=== PATIENT | female | born 1985 | race Caucasian/White ===

== ENCOUNTER 2020-07-16 17:42 | Emergency (ER) | payer OTHER, SELFPAY ==
[2020-07-16] MEDS ORDERED: Acetaminophen 500 MG TAB ONE (18:10)
[2020-07-16] MEDS ORDERED: Ketorolac Tromethamine 30 MG/ML VIAL ONE (18:10)
== END 2020-07-16 18:36 | disposition home or self-care (01) ==
LOC: ERS 17:42
DX: S80.01XA Contusion of right knee, initial encounter (principal); I10 Essential (primary) hypertension; Z79.899 Other long term (current) drug therapy; W22.8XXA Striking against or struck by other objects, initial encounter
CPT/HCPCS: 96372; J1885

== ENCOUNTER 2020-08-28 17:04 | Emergency (ER) | payer OTHER, SELFPAY ==
[2020-08-28 18:05] LABS: #Eosinphils 0.1 thou/uL (0.0-0.7); #Lymphocytes 2.9 thou/uL (1.20-3.40); #Monocytes 0.5 thou/uL (0.11-0.59); %Basophils 0.4 % (0.0-1.0); %Eosinophils 0.7 % (0.0-10.0); %Lymphocytes 30.5 % (21.0-51.0); %Monocytes 5.4 % (0.0-10.0); Mean Corpuscular HGB CONC 35.1 g/dL (32.0-36.0); Mean Corpuscular Hemoglobin 31.4 pg (27.0-31.0); Mean Corpuscular Volume 89.5 fL (78.0-98.0); Mean Platelet Volume 7.7 fL (7.4-10.4); Platelet Count 234 thou/uL (130-400); RBC Distribution Width 11.3 % (11.5-14.5); Red Blood Cell (RBC) Count 4.78 mill/uL (4.20-5.40); White Blood Cell (WBC) Count 9.5 thou/uL (4.8-10.8)
[2020-08-28 18:29] LABS: CKMB 1.2 ng/mL (0-6.6)
[2020-08-28 18:31] LABS: ALT (SGPT) 13 U/L (8-55); AST (SGOT) 17 U/L (5-34); Albumin 4.2 g/dL (3.5-5.0); Alkaline Phosphatase 45 U/L (40-110); Anion Gap 15 mmol/L (10-20); BUN (Urea Nitrogen) 16 mg/dL (7.0-18.7); Bilirubin, Total 0.3 mg/dL (0.2-1.2); Calc. Creatinine Clearance 0 mL/min (70-130); Calcium 9.8 mg/dL (7.8-10.44); Carbon Dioxide 24 mmol/L (22-29); Chloride 103 mmol/L (98-107); Globulin 2.6 g/dL (2.4-3.5); Glucose 96 mg/dL (70-105); Lipase 29 U/L (8-78); Potassium 3.7 mmol/L (3.5-5.1); Protein, Total 6.8 g/dL (6.0-8.3); Sodium 138 mmol/L (136-145)
[2020-08-28] MEDS ORDERED: Morphine 4 MG/ML VIAL ONE (18:48)
[2020-08-28] MEDS ORDERED: Diazepam 5 MG TAB ONE (18:48)
== END 2020-08-28 19:45 | disposition home or self-care (01) ==
LOC: ERS 17:04
DX: S29.012A Strain of muscle and tendon of back wall of thorax, initial encounter (principal); I10 Essential (primary) hypertension; Z79.899 Other long term (current) drug therapy; X58.XXXA Exposure to other specified factors, initial encounter
CPT/HCPCS: 36415; 71045; 80053; 82553; 83690; 84484; 85025; 93005; 96372; J2270

== ENCOUNTER 2023-03-04 09:07 | Outpatient (CLI) | payer OTHER | END 2023-03-04 09:08 | disposition home or self-care (01) | LOC: ULT 09:07 | PROVIDERS: ATTEND Nurse Practitioner Family | DX: R10.9 Unspecified abdominal pain (principal); K59.09 Other constipation; K80.20 Calculus of gallbladder without cholecystitis without obstruction | CPT/HCPCS: 76700 ==

== ENCOUNTER 2023-06-05 18:33 | Emergency (ER) | payer OTHER ==
[2023-06-05] MEDS ORDERED: Acetaminophen 500 MG TAB ONE (18:44)
[2023-06-05] MEDS ORDERED: Ibuprofen 200 MG TAB ONE ×2 (18:45→18:46)
[2023-06-05] MEDS ORDERED: Boostrix 0.5 ML (Tdap) VIAL (>/=7 yrs of age) ONE (18:48)
== END 2023-06-05 20:23 | disposition home or self-care (01) ==
LOC: ERS 18:33
DX: S61.311A Laceration without foreign body of left index finger with damage to nail, initial encounter (principal); I10 Essential (primary) hypertension; Z55.6 Problems related to health literacy; Z23 Encounter for immunization; W26.8XXA Contact with other sharp object(s), not elsewhere classified, initial encounter; Y93.G3 Activity, cooking and baking
CPT/HCPCS: 90471; 90715